=== PATIENT | male | born 1935 | race Caucasian/White ===

== ENCOUNTER 2018-02-15 18:42 | Inpatient (IN) | payer MEDICARE, OTHER ==
[~2018-02-15] VITALS: Ht 165.1 cm; Wt 64.8 kg
[2018-02-15] MEDS ORDERED: MAGN400T36 PO (19:15)
[2018-02-15] MEDS ORDERED: FLUO10TA PO (19:16)
[2018-02-15] MEDS ORDERED: DOCU100C33 PO (19:16)
[2018-02-15] MEDS ORDERED: CARB1TAB47 PO (19:17)
[2018-02-15] MEDS ORDERED: ASPI-621 PO (19:18)
[2018-02-15] MEDS ORDERED: LOSA50TA6 PO (19:18)
[2018-02-15] MEDS ORDERED: INTESTINAL FORMULA PO (19:20)
[2018-02-15 19:37] LABS: MEAN CORPUSCULAR HEMOGLOBIN 32.3 pg (27.5-34.5); MEAN CORPUSCULAR HGB CONC 34.3 g/dL (33.2-36.2); MEAN CORPUSCULAR VOLUME 94.2 fL (81-97); MEAN PLATELET VOLUME 7.9 fL (7.4-10.4); PLATELET COUNT 269 x10^3/uL (130-400); RED BLOOD COUNT 4.72 x10^6/uL (4.38-5.82); RED CELL DISTRIBUTION WIDTH 13.8 % (9.4-14.8)
[2018-02-15 19:43] LABS: INTERNATIONAL NORMALIZED RATIO 1.06 (0.93-1.1)
[2018-02-15 19:46] LABS: ALANINE AMINOTRANSFERASE 6 U/L (12-78); ALBUMIN 3.5 g/dL (3.4-5.0); ANION GAP 6 mmol/L (5-15); CALCIUM 8.7 mg/dL (8.5-10.1); CHLORIDE 104 mmol/L (98-107); CREATININE 1.02 mg/dL (0.7-1.3)
[2018-02-15 19:49] LABS: ALKALINE PHOSPHATASE 69 U/L (45-117); BILIRUBIN,TOTAL 1.8 mg/dL (0.2-1.0); TOTAL PROTEIN 6.8 g/dL (6.4-8.2)
[2018-02-15 19:52] LABS: TROPONIN I < 0.015 ng/mL (0.000-0.045)
[2018-02-15 19:56] LABS: BASOPHILS # (AUTO) 0.02 x10^3/uL (0-0.1); BASOPHILS % (AUTO) 0 % (0-1); EOSINOPHILS % (AUTO) 0 % (1-7); LYMPHOCYTES # (AUTO) 0.56 x10^3/uL (1-3.4); LYMPHOCYTES % (AUTO) 3 % (22-44); MD SCAN; MONOCYTES # (AUTO) 0.79 x10^3/uL (0.2-0.8); MONOCYTES % (AUTO) 4 % (2-9); NEUTROPHILS # (AUTO) 18.89 x10^3/uL (1.8-6.8); NEUTROPHILS % (AUTO) 93 % (42-75)
[2018-02-15 20:19] LABS: CULTURE INDICATED? YES; MICROSCOPIC INDICATED
[2018-02-15] MEDS ORDERED: CEFTRIAXONE PMX 1GM/50ML 50 ML IV ONE (21:00)
[2018-02-15] MEDS ORDERED: CEFTRIAXONE PMX 1GM/50ML 50 ML ONE (21:05)
[2018-02-15] MEDS: SODIUM CHLORIDE 0.9% 1,000 ML IV ONE ×2 (21:20→23:00)
[2018-02-15] MEDS ORDERED: ACETAMINOPHEN 325 MG TABLET PO PRN (21:30)
[2018-02-15] MEDS ORDERED: ONDANSETRON 2MG/ML, 2ML IVPush PRN (21:30)
[2018-02-15] MEDS ORDERED: ENOXAPARIN 40 MG/0.4 ML SQ SCH (21:30)
[2018-02-15] MEDS ORDERED: hydrALAzine 20 MG/ML, 1ML IVPush PRN (21:30)
[2018-02-15] MEDS ORDERED: SODIUM CHLORIDE FLUSH 10ML SYR IVF ONE (21:30)
[2018-02-15 22:16] VITALS: BP 120/62
[2018-02-15] MEDS: SODIUM CHLORIDE 0.9% 1,000 ML IV SCH (23:02)
[2018-02-16 02:05] VITALS: BP 142/67
[2018-02-16 05:39] LABS: MEAN CORPUSCULAR HEMOGLOBIN 32.3 pg (27.5-34.5); MEAN CORPUSCULAR VOLUME 94.9 fL (81-97); MEAN PLATELET VOLUME 8.2 fL (7.4-10.4); PLATELET COUNT 242 x10^3/uL (130-400); RED BLOOD COUNT 4.49 x10^6/uL (4.38-5.82); RED CELL DISTRIBUTION WIDTH 13.6 % (9.4-14.8)
[2018-02-16 05:49] LABS: CHLORIDE 106 mmol/L (98-107)
[2018-02-16 05:58] LABS: ANION GAP 7 mmol/L (5-15); CALCIUM 8.4 mg/dL (8.5-10.1); CREATININE 0.93 mg/dL (0.7-1.3)
[2018-02-16 06:22] LABS: BASOPHILS # (AUTO) 0.04 x10^3/uL (0-0.1); BASOPHILS % (AUTO) 0 % (0-1); EOSINOPHILS # (AUTO) 0.02 x10^3/uL (0-0.4); EOSINOPHILS % (AUTO) 0 % (1-7); LYMPHOCYTES # (AUTO) 0.64 x10^3/uL (1-3.4); LYMPHOCYTES % (AUTO) 4 % (22-44); MD SCAN; MONOCYTES % (AUTO) 4 % (2-9); NEUTROPHILS # (AUTO) 15.26 x10^3/uL (1.8-6.8); NEUTROPHILS % (AUTO) 92 % (42-75)
[2018-02-16] MEDS ORDERED: POTASSIUM PHOSPHATE 44 MEQ in SODIUM CHLORIDE 0.9% 500 ML IV ONE (06:30)
[2018-02-16] MEDS ORDERED: PNEUMOCOCCAL 23 VACCINE IM-VACC ONE (07:00)
[2018-02-16 08:03] VITALS: BP 161/77
[2018-02-16] MEDS: FLUOXETINE 10 MG CAP PO SCH (08:17)
[2018-02-16] MEDS: ENOXAPARIN 40 MG/0.4 ML SQ SCH (08:17)
[2018-02-16] MEDS: MAGNESIUM OXIDE 400 MG TABLET PO SCH (08:17)
[2018-02-16] MEDS: ASPIRIN 81 MG TABLET EC PO SCH (08:17)
[2018-02-16] MEDS: DOCUSATE 100 MG CAPSULE PO SCH (08:18)
[2018-02-16] MEDS: SODIUM CHLORIDE 0.9% 1,000 ML IV SCH ×2 (08:18→19:56)
[2018-02-16] MEDS: LOSARTAN 50MG TABLET PO SCH (08:18)
[2018-02-16 13:13] VITALS: BP 153/78
[2018-02-16] MEDS: NAPROXEN 500 MG TABLET PO SCH ×2 (14:55→21:24)
[2018-02-16] MEDS: TEMPLATE NON-FORMULARY MED. (Carbidopa/Levodopa** (Carbidopa-Levo 25-100 Mg Odt**) 1 TAB) PO SCH ×2 (14:56→21:00)
[2018-02-16 19:59] VITALS: BP 118/58
[2018-02-16] MEDS ORDERED: hydrALAzine 20 MG/ML, 1ML IV PRN (20:30)
[2018-02-16] MEDS: CEFTRIAXONE PMX 1GM/50ML 50 ML IV SCH (21:23)
[2018-02-17 03:07] VITALS: BP 119/68
[2018-02-17] MEDS: SODIUM CHLORIDE 0.9% 1,000 ML IV SCH ×2 (04:50→15:58)
[2018-02-17 05:29] LABS: BASOPHILS # (AUTO) 0.01 x10^3/uL (0-0.1); BASOPHILS % (AUTO) 0 % (0-1); EOSINOPHILS # (AUTO) 0.04 x10^3/uL (0-0.4); EOSINOPHILS % (AUTO) 1 % (1-7); LYMPHOCYTES # (AUTO) 0.51 x10^3/uL (1-3.4); LYMPHOCYTES % (AUTO) 8 % (22-44); MD NO; MEAN CORPUSCULAR HEMOGLOBIN 31.7 pg (27.5-34.5); MEAN CORPUSCULAR HGB CONC 33.4 g/dL (33.2-36.2); MEAN CORPUSCULAR VOLUME 94.8 fL (81-97); MONOCYTES # (AUTO) 0.48 x10^3/uL (0.2-0.8); MONOCYTES % (AUTO) 7 % (2-9); NEUTROPHILS # (AUTO) 5.77 x10^3/uL (1.8-6.8); NEUTROPHILS % (AUTO) 85 % (42-75); PLATELET COUNT 202 x10^3/uL (130-400); RED BLOOD COUNT 4.47 x10^6/uL (4.38-5.82); RED CELL DISTRIBUTION WIDTH 13.7 % (9.4-14.8)
[2018-02-17 07:46] VITALS: BP 130/77
[2018-02-17] MEDS: TEMPLATE NON-FORMULARY MED. (Carbidopa/Levodopa** (Carbidopa-Levo 25-100 Mg Odt**) 1 TAB) PO SCH (09:00)
[2018-02-17] MEDS: ASPIRIN 81 MG TABLET EC PO SCH (09:34)
[2018-02-17] MEDS: DOCUSATE 100 MG CAPSULE PO SCH (09:34)
[2018-02-17] MEDS: FLUOXETINE 10 MG CAP PO SCH (09:34)
[2018-02-17] MEDS: MAGNESIUM OXIDE 400 MG TABLET PO SCH (09:34)
[2018-02-17] MEDS: ENOXAPARIN 40 MG/0.4 ML SQ SCH (09:34)
[2018-02-17] MEDS: LOSARTAN 50MG TABLET PO SCH (09:34)
[2018-02-17] MEDS: NAPROXEN 500 MG TABLET PO SCH ×2 (09:35→20:15)
[2018-02-17 14:13] VITALS: BP 121/72
[2018-02-17] MEDS: LEVODOPA PO SCH ×2 (15:58→20:16)
[2018-02-17] MEDS: [UNRECOGNIZED DRUG - OTHER] PO SCH ×2 (15:58→20:16)
[2018-02-17] MEDS: CARBIDOPA PO SCH ×2 (15:58→20:16)
[2018-02-17 19:32] VITALS: BP 155/78
[2018-02-17] MEDS: CEFTRIAXONE PMX 1GM/50ML 50 ML IV SCH ×2 (20:30→21:58)
[2018-02-18 02:00] VITALS: BP 144/74
[2018-02-18] MEDS: SODIUM CHLORIDE 0.9% 1,000 ML IV SCH ×2 (04:25→14:30)
[2018-02-18] MEDS ORDERED: ACETAMINOPHEN 500 MG TABLET PO PRN (05:29)
[2018-02-18 08:15] VITALS: BP 153/73
[2018-02-18] MEDS: CARBIDOPA PO SCH ×3 (09:00→21:00)
[2018-02-18] MEDS: [UNRECOGNIZED DRUG - OTHER] PO SCH ×3 (09:00→21:00)
[2018-02-18] MEDS: LOSARTAN 50MG TABLET PO SCH (09:00)
[2018-02-18] MEDS: LEVODOPA PO SCH ×3 (09:00→21:00)
[2018-02-18] MEDS: MAGNESIUM OXIDE 400 MG TABLET PO SCH (09:00)
[2018-02-18] MEDS: FLUOXETINE 10 MG CAP PO SCH (09:26)
[2018-02-18] MEDS: ASPIRIN 81 MG TABLET EC PO SCH (09:26)
[2018-02-18] MEDS: DOCUSATE 100 MG CAPSULE PO SCH (09:26)
[2018-02-18] MEDS: ENOXAPARIN 40 MG/0.4 ML SQ SCH (09:27)
[2018-02-18] MEDS: NAPROXEN 500 MG TABLET PO SCH ×2 (09:31→21:30)
[2018-02-18 13:50] VITALS: BP 133/74
[2018-02-18 14:12] VITALS: BP 131/67
[2018-02-18 19:36] VITALS: BP 138/72
[2018-02-18] MEDS ORDERED: ZOLPIDEM 10MG TABLET PO PRN (21:00)
[2018-02-18] MEDS: CEFTRIAXONE PMX 1GM/50ML 50 ML IV SCH (21:30)
[2018-02-19 01:29] VITALS: BP 131/68
[2018-02-19] MEDS: SODIUM CHLORIDE 0.9% 1,000 ML IV SCH ×2 (04:05→13:30)
[2018-02-19 07:00] VITALS: BP 131/68
[2018-02-19] MEDS: LEVODOPA PO SCH (09:00)
[2018-02-19] MEDS: [UNRECOGNIZED DRUG - OTHER] PO SCH (09:00)
[2018-02-19] MEDS: CARBIDOPA PO SCH (09:00)
[2018-02-19] MEDS: MAGNESIUM OXIDE 400 MG TABLET PO SCH (09:18)
[2018-02-19] MEDS: FLUOXETINE 10 MG CAP PO SCH (09:19)
[2018-02-19] MEDS: ENOXAPARIN 40 MG/0.4 ML SQ SCH (09:19)
[2018-02-19] MEDS: LOSARTAN 50MG TABLET PO SCH (09:19)
[2018-02-19] MEDS: ASPIRIN 81 MG TABLET EC PO SCH (09:19)
[2018-02-19] MEDS: DOCUSATE 100 MG CAPSULE PO SCH (09:19)
[2018-02-19] MEDS: NAPROXEN 500 MG TABLET PO SCH (09:19)
== END 2018-02-19 14:19 | DRG 871 ==
LOC: ED 21:00 → SUATTDRO 21:29 → EDIP 21:30 → 3NE 22:10
PROVIDERS: ADMIT Hospitalist; ATTEND Hospitalist
PROC: 0T9B70Z Drainage of Bladder with Drainage Device, Via Natural or Artificial Opening (ICD-10-PCS; principal; 2018-02-15)
DX: A41.9 Sepsis, unspecified organism (principal); G93.41 Metabolic encephalopathy; G20 Parkinson's disease; E83.39 Other disorders of phosphorus metabolism; E86.0 Dehydration; N30.00 Acute cystitis without hematuria; I10 Essential (primary) hypertension; B96.20 Unspecified Escherichia coli [E. coli] as the cause of diseases classified elsewhere; G24.9 Dystonia, unspecified; I25.10 Atherosclerotic heart disease of native coronary artery without angina pectoris; Z95.0 Presence of cardiac pacemaker; Z23 Encounter for immunization
CPT/HCPCS: 36415; 71045; 80048; 80053; 81001; 83605; 83735; 84100; 84145; 84484; 85025; 85610; 85730; 87077; 87086; 87186; 90732; 93005; 99285; J0696; J1650; J7030; J7040

== ENCOUNTER 2018-07-22 13:19 | Emergency (ER) | payer MEDICARE, OTHER ==
[~2018-07-22] VITALS: Ht 165.1 cm; Wt 70.0 kg
[~2018-07-22 13:19] MED LIST: ASPI-621 PO; CARB1TAB47 PO; DOCU100C33 PO; FLUO10TA PO; INTESTINAL FORMULA PO; LOSA50TA7 PO; MAGN400T36 PO
[2018-07-22 14:16] LABS: BASOPHILS # (AUTO) 0.03 x10^3/uL (0-0.1); BASOPHILS % (AUTO) 0 % (0-1); EOSINOPHILS # (AUTO) 0.19 x10^3/uL (0-0.4); EOSINOPHILS % (AUTO) 3 % (1-7); LYMPHOCYTES # (AUTO) 1.02 x10^3/uL (1-3.4); LYMPHOCYTES % (AUTO) 14 % (22-44); MD NO; MEAN CORPUSCULAR HEMOGLOBIN 31.6 pg (27.5-34.5); MEAN CORPUSCULAR HGB CONC 33.9 g/dL (33.2-36.2); MEAN CORPUSCULAR VOLUME 93.4 fL (81-97); MEAN PLATELET VOLUME 7.9 fL (7.4-10.4); MONOCYTES % (AUTO) 9 % (2-9); NEUTROPHILS # (AUTO) 5.59 x10^3/uL (1.8-6.8); NEUTROPHILS % (AUTO) 74 % (42-75); PLATELET COUNT 263 x10^3/uL (130-400); RED BLOOD COUNT 4.68 x10^6/uL (4.38-5.82); RED CELL DISTRIBUTION WIDTH 13.6 % (9.4-14.8)
[2018-07-22 14:19] LABS: ALANINE AMINOTRANSFERASE 21 U/L (12-78); ALBUMIN 3.2 g/dL (3.4-5.0); ANION GAP 4 mmol/L (5-15); CALCIUM 8.1 mg/dL (8.5-10.1); CHLORIDE 108 mmol/L (98-107); CREATININE 0.88 mg/dL (0.7-1.3)
[2018-07-22 14:23] LABS: ALKALINE PHOSPHATASE 80 U/L (45-117); BILIRUBIN,TOTAL 0.9 mg/dL (0.2-1.0); TOTAL PROTEIN 6.7 g/dL (6.4-8.2); TROPONIN I 0.017 ng/mL (0.000-0.045)
[2018-07-22 15:01] VITALS: BP 157/75
== END 2018-07-22 15:39 | disposition home or self-care (01) ==
LOC: ED 15:20
DX: R06.00 Dyspnea, unspecified (principal); I10 Essential (primary) hypertension; Z95.0 Presence of cardiac pacemaker
CPT/HCPCS: 36415; 71045; 80053; 83880; 84484; 85025; 93005; 99285